=== PATIENT | male | born 1965 | race Caucasian/White ===

== ENCOUNTER → 2016-12-05 | Outpatient (CLI) | payer MEDICAID ==
--- NOTE | 2016-12-05 23:57 | MR ---
EXAMINATION TYPE: MR ankle RT wo con DATE OF EXAM: 12/05/2016 COMPARISON: NONE HISTORY: Right ankle pain Standard multiplanar, multisequence MRI departmental protocol Multiplanar, multisequence images of the right ankle were acquired. FINDINGS: Ankle mortise is anatomic. Joint spaces are fairly normal. The collateral ligaments appear intact. Achilles tendon appears normal. The medial and lateral flexor tendons of the ankle appear int act. Subtalar joint appears normal. Talonavicular joint appears normal. Plantar fascia appears normal . I see no bony destructive process. There is no sign of a fracture. Tarsal bones appear intact. IMPRESSION: Negative exam. I do not see a cause for right ankle pain.
== END | disposition home or self-care (01) ==
LOC: RADMRIMAIN 14:43
PROVIDERS: ATTEND Orthopaedic Surgery
DX: M25.571 Pain in right ankle and joints of right foot (principal)

== ENCOUNTER → 2017-01-09 | Outpatient (CLI) | payer MEDICAID ==
--- NOTE | 2017-01-09 22:00 | MR ---
EXAMINATION TYPE: MR lumbar spine wo con DATE OF EXAM: 01/09/2017 COMPARISON: NONE HISTORY: Low back pain with Right Leg and Foot weakness TECHNIQUE: T1 and T2 axial and sagittal images of the lumbar spine are submitted. FINDINGS: There is no abnormal signal seen within the visualized spinal cord or paraspinal soft tissu es. At L1-2 there is no disc herniation or canal stenosis. There is facet arthropathy. No foraminal encro achment. At L2-3 there is mild hypertrophic change of the facets with no disc herniation or canal stenosis. No foraminal encroachment. At L3-4 there is Diffuse circumferential disc bulging with facet arthropathy. Bulging greater lateral ly to left. Moderate bilateral foraminal encroachment greater on the left. At L4-5 there is hypertrophy of the facets. No disc herniation or canal stenosis. No foraminal encroa chment. At L5-S1 there is mild facet arthropathy. No disc herniation or canal stenosis. No foraminal encroach ment. Vertebral body hemangioma at multiple levels. IMPRESSION: 1. Multilevel facet arthropathy with disc bulging at L3-4 with mild effacement of thecal sac. Bilater al foraminal encroachment greater on the left due to greater left lateral disc bulging.
== END | disposition home or self-care (01) ==
LOC: RADMRIMAIN 21:04
PROVIDERS: ATTEND Physical Medicine & Rehabilitation
DX: M51.16 Intervertebral disc disorders with radiculopathy, lumbar region (principal); M46.86 Other specified inflammatory spondylopathies, lumbar region
CPT/HCPCS: 72148

== ENCOUNTER → 2018-11-18 | Outpatient (CLI) | payer MEDICAID ==
[2018-11-18 17:41] LABS: Folate, Serum 12.4 ng/mL
== END | disposition home or self-care (01) ==
LOC: LABWHC1 11:00
PROVIDERS: ATTEND Psychiatry & Neurology Neurology
DX: E53.8 Deficiency of other specified B group vitamins (principal)
CPT/HCPCS: 36415; 82607; 82746

== ENCOUNTER → 2022-10-15 | Outpatient (CLI) | payer MEDICAID ==
--- NOTE | 2022-10-15 14:16 | XR ---
EXAMINATION TYPE: XR chest 2V DATE OF EXAM: 10/15/2022 COMPARISON: None INDICATION: Chest tightness, short of breath TECHNIQUE: Frontal and lateral views of the chest are obtained. FINDINGS: The heart size is normal. The pulmonary vasculature is normal. The lungs are clear. IMPRESSION: 1. No acute pulmonary process.
[2022-10-15 20:39] LABS: Basophils # (A) 0.03 X 10*3/uL (0.00-0.10); Basophils % (A) 0.6 %; Eosinophils # (A) 0.06 X 10*3/uL (0.04-0.35); Eosinophils % (A) 1.2 %; HCT 46.3 % (39.6-50.0); HGB 15.5 g/dL (13.0-17.0); Immature Grans, Automated 0.4 %; Lymphocytes # (A) 1.79 X 10*3/uL (0.90-5.00); Lymphocytes % (A) 35.1 %; MCH 30.7 pg (27.0-32.0); MCHC 33.5 g/dL (32.0-37.0); MCV 91.7 fL (80.0-97.0); Mean Platelet Volume 9.4 fL (9.5-12.2); Monocytes # (A) 0.46 X 10*3/uL (0.20-1.00); NRBC Per 100 WBC 0 /100 WBCS (0.0-0.0); Neutrophils # (A) 2.74 X 10*3/uL (1.80-7.70); Neutrophils % (A) 53.7 %; Platelet Count 221 X 10*3/uL (140-440); RBC 5.05 X 10*6/uL (4.40-5.60); RDW 13.2 % (11.5-14.5)
[2022-10-15 21:19] LABS: African American GFR (CKD) 97.1 (60.0-200.0); Albumin 4.6 g/dL (3.8-4.9); Albumin/Globulin Ratio 2.09 (1.60-3.17); Anion Gap 8.3 mmol/L (10.00-18.00); BUN/Creat Ratio 12.7 Ratio (12.00-20.00); Blood Urea Nitrogen 12.7 mg/dL (9.0-27.0); Calcium 9.8 mg/dL (8.7-10.3); Carbon Dioxide 26.7 mmol/L (20.0-27.5); Globulin 2.2 g/dL (1.6-3.3); Non-African American GFR(CKD) 83.8 (60.0-200.0); Potassium 4.8 mmol/L (3.5-5.5); Total Bilirubin 0.5 mg/dL (0.30-1.20); Total Protein 6.8 g/dL (6.2-8.2)
== END | disposition home or self-care (01) ==
LOC: LABWHC1 13:48
PROVIDERS: ATTEND Family Medicine
DX: R06.02 Shortness of breath (principal); R07.89 Other chest pain; Z82.49 Family history of ischemic heart disease and other diseases of the circulatory system
CPT/HCPCS: 36415; 71046; 80053; 82550; 84443; 84484; 85025; 93005

== ENCOUNTER → 2023-09-30 | Outpatient (CLI) | payer MEDICAID ==
--- NOTE | 2023-09-30 17:43 | XR ---
EXAMINATION TYPE: XR knee complete bilateral DATE OF EXAM: 09/30/2023 COMPARISON: None HISTORY: Osteoarthritis TECHNIQUE: Bilateral knees 4 views each FINDINGS: No acute fractures or dislocations evident. Joint spaces are preserved. No joint effusion i s evident. There is a large spur from the posterior metaphyseal right tibia. Consider MRI of the right knee for additional evaluation No suspicious joint space abnormality is evident IMPRESSION: 1. One suspected osteochondroma posterior right tibia. MRI can be performed for closer evaluation. 2. No acute osseous abnormalities bilateral knees. 3. No suspicious degenerative changes of the knees
[2023-09-30 18:52] LABS: Basophils # (A) 0.03 X 10*3/uL (0.00-0.10); Basophils % (A) 0.6 %; Eosinophils # (A) 0.06 X 10*3/uL (0.04-0.35); Eosinophils % (A) 1.3 %; HCT 49.1 % (39.6-50.0); HGB 16.2 g/dL (13.0-17.0); MCH 30.5 pg (27.0-32.0); MCV 92.3 FL (80.0-97.0); Mean Platelet Volume 9.4 FL (9.5-12.2); Monocytes # (A) 0.35 X 10*3/uL (0.20-1.00); Monocytes % (A) 7.4 %; NRBC Per 100 WBC 0 X 10*3/uL (0.00-0.01); Neutrophils # (A) 2.65 X 10*3/uL (1.80-7.70); Neutrophils % (A) 56.5 %; Platelet Count 213 X 10*3/uL (140-440); RBC 5.32 X 10*6/uL (4.40-5.60); RDW 13.1 % (11.5-14.5)
[2023-09-30 19:46] LABS: % Iron Saturation 32.56 (15.00-50.00); ALT 34 U/L (10-49); AST 24 U/L (14-35); Albumin 4.7 g/dL (3.8-4.9); Albumin/Globulin Ratio 1.88 Ratio (1.60-3.17); Alkaline Phosphatase 90 U/L (41-126); BUN/Creat Ratio 14.78 Ratio (12.00-20.00); Blood Urea Nitrogen 13.3 mg/dL (9.0-27.0); Calcium 9.9 mg/dL (8.7-10.3); Carbon Dioxide 26.2 mmol/L (21.6-31.8); Chloride 104 mmol/L (96-109); Chol/HDL Ratio 4.37 Ratio; Globulin 2.5 g/dL (1.6-3.3); Glucose 89 mg/dL (70-110); Iron 112 UG/DL (65-175); LDL Cholesterol,Calculated 157.1 mg/dL (0.0-131.0); PSA Annual Screen 0.552 ng/mL (0.000-4.000); Potassium 4.5 mmol/L (3.5-5.5); Sodium 141 mmol/L (135-145); Total Bilirubin 0.6 mg/dL (0.3-1.2); Total Iron Binding Capacity 344 UG/DL (228-460); Total Protein 7.2 g/dL (6.2-8.2)
[2023-10-01 04:25] LABS: EBV - VCA IgM <10.0 U/mL (<36.0)
--- NOTE | 2023-10-01 11:23 | XR ---
EXAMINATION TYPE: XR chest 2V DATE OF EXAM: 10/01/2023 COMPARISON: 10/15/2022 HISTORY: Shortness of breath TECHNIQUE: Frontal and lateral views of the chest are obtained. FINDINGS: Scattered senescent parenchymal changes noted. Hyperinflation compatible with COPD. No evidence for infiltrate. No evidence for atelectasis. Heart size is stable. Mediastinal structures are stable and grossly unremarkable. No evidence for hilar prominence. Degenerative changes dorsal spine. IMPRESSION: 1. No evidence for acute pulmonary disease.
== END | disposition home or self-care (01) ==
LOC: RADXRMAIN 14:07
PROVIDERS: ATTEND Internal Medicine
DX: R07.9 Chest pain, unspecified (principal); D16.21 Benign neoplasm of long bones of right lower limb; M17.10 Unilateral primary osteoarthritis, unspecified knee; Z00.00 Encounter for general adult medical examination without abnormal findings
CPT/HCPCS: 86665; 80061; 80053; 84443; 82533; 82607; 82728; 82746; 83540; 83550; 85025; 84270; 82040; 84403; 82784; 86645; 73562; 71046; G0103

== ENCOUNTER → 2023-10-09 | Outpatient (CLI) | payer MEDICAID ==
--- NOTE | 2023-10-09 16:50 | MR ---
EXAMINATION TYPE: MR knee RT wo con DATE OF EXAM: 10/09/2023 COMPARISON: None HISTORY: Right knee pain for 4 years. TECHNIQUE: Multiplanar, multisequence imaging of the right knee is performed without IV contrast. FINDINGS: There is no bone contusion or fracture. There is no joint effusion. The articular cartilages are normal in signal intensity and thickness and there is no significant ost eoarthritic change of the knee. There is no meniscal tear. The cruciate and collateral ligaments are intact. The patellar and quadriceps tendons are intact. The anterior fat pads are normal. IMPRESSION: No evidence of internal derangement or acute injury.
== END | disposition home or self-care (01) ==
LOC: RADMRIMAIN 15:44
PROVIDERS: ATTEND Internal Medicine
DX: M17.11 Unilateral primary osteoarthritis, right knee (principal)

== ENCOUNTER → 2023-10-14 | Outpatient (CLI) | payer MEDICAID ==
--- NOTE | 2023-10-14 11:54 | CA ---
Stress Echo Report Glenn Potter Age: 58 Gender: M : 1965 Exam Date: 10/14/2023 10:00 Exam Location: [facility] Ht (in): 70 Wt (lb): 190 Ordering Physician: Bubba Starkey DO Referring Physician: Bubba Starkey DO Source Water Protection Specialist: العراقي Technologist Procedure CPT: Indication: R07.9 CHEST PAIN ICD-9 Codes: Rhythm: Patient History: Chest pain and family history of heart disease. Cardiac Medications: Medications in past 24 hours: Contrast: Stress Results Protocol: Brett Total dose(mL): Exercise Duration (min:sec): 11:[address] Depression (mm): Angina Score: Newsome Score: METS: 12.1 Resting HR: 79 Resting BP: 139 / 89 Peak HR: 150 Peak BP: 195 / 89 Max Predicted HR: 163 92 % Max Predicted HR Target HR: 139 Double Product: [id number] Stress Summary: BP Response: Reason for Termination: Reached target heart rate or work-load Cardiac Symptoms: Slight chest pressure. ECG Analysis Resting ECG: Normal sinus rhythm normal axis normal intervals Stress ECG: Patient exercised on Brett protocol for 12 minutes achieving 85% of predicted maximal heart rate without chest pain or diagnostic ST segment depression Arrhythmia: Echo Analysis Resting Echo: Normal left ventricular size wall motion systolic function Peak Echo Analysis: Normal hyperdynamic response of all segments of myocardium MEASUREMENTS (Male/Female) Normal Values CONCLUSIONS Excellent exercise tolerance Negative stress test by EKG criteria Negative stress echo Dr. Vicente Crawley MD (Electronically Signed) Final Date: 14 October 2023 11:53
== END | disposition home or self-care (01) ==
LOC: RADNMMAIN 09:33
PROVIDERS: ATTEND Internal Medicine
DX: R07.9 Chest pain, unspecified (principal); Z82.49 Family history of ischemic heart disease and other diseases of the circulatory system
CPT/HCPCS: 93351

== ENCOUNTER 2024-01-26 07:54 | Emergency (ER) | payer MEDICAID ==
[2024-01-26 07:59] VITALS: RESP 18; TEMP 98
[2024-01-26] MEDS: SODIUM CHLORIDE 0.9% 1,000 ML IV ONE (08:23)
[2024-01-26] MEDS: SODIUM CHLORIDE 0.9% 500 ML 500 ML IV ONE (08:26)
[2024-01-26 08:37] LABS: Basophils % (A) 1 %; Eosinophils # (A) 0.2 k/uL (0-0.7); Eosinophils % (A) 5 %; HCT 48.3 % (39.0-53.0); HGB 15.7 gm/dL (13.0-17.5); Lymphocytes # (A) 1.4 k/uL (1.0-4.8); Lymphocytes % (A) 32 %; MCH 30.1 pg (25.0-35.0); MCHC 32.5 g/dL (31.0-37.0); MCV 92.5 fL (80.0-100.0); Mean Platelet Volume 6.8; Monocytes # (A) 0.3 k/uL (0-1.0); Monocytes % (A) 6 %; Neutrophils # (A) 2.4 k/uL (1.3-7.7); Neutrophils % (A) 55 %; Platelet Count 220 k/uL (150-450); RBC 5.22 m/uL (4.30-5.90); RDW 12.9 % (11.5-15.5); WBC 4.3 k/uL (3.8-10.6)
[2024-01-26] MEDS: KETOROLAC 15 MG/ML 1 ML VIAL IVP STA (08:40)
[2024-01-26] MEDS: ORPHENADRINE 30 MG/ML 2 ML VIAL IVP STA (08:41)
[2024-01-26 08:57] LABS: ALT 30 U/L (4-49); AST 30 U/L (17-59); African American GFR (CKD) >90 (>60 ml/min/1.73 sqM); Albumin 4.3 g/dL (3.5-5.0); Alkaline Phosphatase 81 U/L (38-126); Anion Gap 5 mmol/L; Blood Urea Nitrogen 16 mg/dL (9-20); Calcium 9.3 mg/dL (8.4-10.2); Carbon Dioxide 26 mmol/L (22-30); Chloride 108 mmol/L (98-107); Glucose 98 mg/dL (74-99); Non-African American GFR(CKD) >90 (>60 ml/min/1.73 sqM); Potassium 4.1 mmol/L (3.5-5.1); Sodium 139 mmol/L (137-145); Total Bilirubin 0.8 mg/dL (0.2-1.3); Total Protein 6.8 g/dL (6.3-8.2)
--- NOTE | 2024-01-26 09:09 | XR ---
EXAMINATION TYPE: XR chest 2V DATE OF EXAM: 01/26/2024 COMPARISON: 09/30/2023 HISTORY: Chest pain TECHNIQUE: Frontal and lateral views of the chest are obtained. FINDINGS: There is no focal air space opacity. No evidence for pneumothorax. No pleural effusion. The cardiac silhouette size is within normal limits. The osseous structures are grossly intact. IMPRESSION: 1. No acute cardiopulmonary process.
--- NOTE | 2024-01-26 09:30 | ED ---
General Adult HPI - General Chief complaint: Back Pain/Injury Stated complaint: Muscle spasms in back Time Seen by Provider: 01/26/24 08:02 Source: patient, RN notes reviewed Mode of arrival: ambulatory Limitations: no limitations - History of Present Illness Initial comments: 58-year-old male presents emerged part chief complaint of thoracic back pain, right shoulder discomfort. Patient states that he went to get up and felt everything tight now. He states he has pain with movement no pain at rest denies any chest pain no shortness of breath other than when the pain takes his breath away. Denies any rashes he states he has been exerting himself and feels dehydrated. - Related Data Previous Rx's Medication Instructions Recorded Azithromycin [Zithromax Z-pack (6 250 mg PO DIRECTED #6 tab 02/09/ tabs)] Cyclobenzaprine [Flexeril] 10 mg PO TID PRN #15 tab 01/26/24 Ketorolac [Toradol] 10 mg PO Q8HR #15 tab 01/26/24 Allergies Allergy/AdvReac Type Severity Reaction Status Date / Time No Known Allergies Allergy Verified 01/26/24 07:59 Review of Systems ROS Statement: Those systems with pertinent positive or pertinent negative responses have been documented in the HPI. ROS Other: All systems not noted in ROS Statement are negative. Past Medical History Past Medical History: No Reported History History of Any Multi-Drug Resistant Organisms: None Reported Past Surgical History: Hernia Repair, Orthopedic Surgery Additional Past Surgical History / Comment(s): arthroscopic rt shoulder Past Anesthesia/Blood Transfusion Reactions: No Reported Reaction Past Psychological History: No Psychological Hx Reported Smoking Status: Never smoker Past Alcohol Use History: Occasional Past Drug Use History: None Reported - Past Family History Mother Family Medical History: No Reported History General Exam Limitations: no limitations General appearance: alert, in no apparent distress Head exam: Present: atraumatic, normocephalic, normal inspection Eye exam: Present: normal appearance, PERRL, EOMI. Absent: scleral icterus, conjunctival injection, periorbital swelling ENT exam: Present: normal exam, mucous membranes moist Neck exam: Present: normal inspection. Absent: tenderness, meningismus, lymphadenopathy Respiratory exam: Present: normal lung sounds bilaterally, chest wall tenderness. Absent: respiratory distress, wheezes, rales, rhonchi, stridor Cardiovascular Exam: Present: regular rate, normal rhythm, normal heart sounds. Absent: systolic murmur, diastolic murmur, rubs, gallop, clicks Course Vital Signs 01/26/24 01/26/24 07:55 09:42 Temperature 98 F 98 F Pulse Rate 66 68 Respiratory 18 18 Rate Blood Pressure 108/73 112/74 O2 Sat by Pulse 98 99 Oximetry Medical Decision Making - Medical Decision Making Was pt. sent in by a medical professional or institution (, NICK, [employer]ANE CREW SUPERVISOR, urgent care, hospital, or fdc...) When possible be specific @ -No Did you speak to anyone other than the patient for history (EMS, parent, family, police, friend...)? What history was obtained from this source @ -No Did you review nursing and triage notes (agree or disagree)? Why? @ -I reviewed and agree with nursing and triage notes Were old charts reviewed (outside hosp., previous admission, EMS record, old EKG, old radiological studies, urgent care reports/EKG's, fdc records)? Report findings @ -No old charts were reviewed Differential Diagnosis (chest pain, altered mental status, abdominal pain women, abdominal pain men, vaginal bleeding, weakness, fever, dyspnea, syncope, headache, dizziness, GI bleed, back pain, seizure, CVA, palpatations, mental health, musculoskeletal)? @ -Differential Back Pain: Strain, zoster, cauda equina syndrome, epidural abscess, vertebral osteomyelitis, discitis, fracture, subluxation, disc herniation, DJD, spinal stenosis, dissection, AAA, pancreatitis, peptic ulcer disease, pyelonephritis, kidney stone, this is not meant to be an all-inclusive list. EKG interpreted by me (3pts min.). @ -[None on X-rays interpreted by me (1pt min.). @ -Chest x-ray shows no acute cardiopulmonary process CT interpreted by me (1pt min.). @ -None done U/S interpreted by me (1pt. min.). @ -None done What testing was considered but not performed or refused? (CT, X-rays, U/S, labs)? Why? @ -None What meds were considered but not given or refused? Why? @ -None Did you discuss the management of the patient with other professionals (professionals i.e. , NICK, CRANE CREW SUPERVISOR, lab, RT, psych nurse, high school social science teacher, car rental sales assistant, teacher, corporate trust officer, rehabilitation caseworker)? Give summary @ -No Was smoking cessation discussed for >3mins.? @ -No Was critical care preformed (if so, how long)? @ -No Were there social determinants of health that impacted care today? How? (Homelessness, low income, unemployed, alcoholism, drug addiction, transportation, low edu. Level, literacy, decrease access to med. care, long-term, rehab)? @ -No Was there de-escalation of care discussed even if they declined (Discuss DNR or withdrawal of care, Hospice)? DNR status @ -No What co-morbidities impacted this encounter? (DM, HTN, Smoking, COPD, CAD, Cancer, CVA, ARF, Chemo, Hep., AIDS, mental health diagnosis, sleep apnea, morbid obesity)? @ -None Was patient admitted / discharged? Hospital course, mention meds given and route, prescriptions, significant lab abnormalities, going to OR and other pertinent info. @ -Discharge patient feels greatly improved after muscle relaxers. Laboratory studies unremarkable patient's pain reproducible only with movement. Undiagnosed new problem with uncertain prognosis? @ -No Drug Therapy requiring intensive monitoring for toxicity (Heparin, Nitro, Insulin, Cardizem)? @ -No Were any procedures done? @ -No Diagnosis/symptom? @ -Thoracic back pain Acute, or Chronic, or Acute on Chronic? @ -Acute Uncomplicated (without systemic symptoms) or Complicated (systemic symptoms)? @ -Complicated Side effects of treatment? @ -No Exacerbation, Progression, or Severe Exacerbation? @ -No Poses a threat to life or bodily function? How? (Chest pain, [place], [place], pneumonia, PE, COPD, DKA, ARF, appy, cholecystitis, CVA, Diverticulitis, Homicidal, Suicidal, threat to staff... and all critical care pts) @ -No - Lab Data Result diagrams: 01/26/24 08:19 01/26/24 08:19 Lab Results 01/26/24 01/26/24 Range/Units 08:19 08:19 WBC 4.3 (3.8-10.6) k/uL RBC 5.22 (4.30-5.90) m/uL Hgb 15.7 (13.0-17.5) gm/dL Hct 48.3 (39.0-53.0) % MCV 92.5 (80.0-100.0) fL MCH 30.1 (25.0-35.0) pg MCHC 32.5 (31.0-37.0) g/dL RDW 12.9 (11.5-15.5) % Plt Count 220 (150-450) k/uL MPV 6.8 Neutrophils % 55 % Lymphocytes % 32 % Monocytes % 6 % Eosinophils % 5 % Basophils % 1 % Neutrophils # 2.4 (1.3-7.7) k/uL Lymphocytes # 1.4 (1.0-4.8) k/uL Monocytes # 0.3 (0-1.0) k/uL Eosinophils # 0.2 (0-0.7) k/uL Basophils # 0.0 (0-0.2) k/uL Sodium 139 (137-145) mmol/L Potassium 4.1 (3.5-5.1) mmol/L Chloride 108 H (98-107) mmol/L Carbon Dioxide 26 (22-30) mmol/L Anion Gap 5 mmol/L BUN 16 (9-20) mg/dL Creatinine 0.79 (0.66-1.25) mg/dL Est GFR (CKD-EPI)AfAm >90 (>60 ml/min/1.73 sqM) Est GFR (CKD-EPI)NonAf >90 (>60 ml/min/1.73 sqM) Glucose 98 (74-99) mg/dL Calcium 9.3 (8.4-10.2) mg/dL Total Bilirubin 0.8 (0.2-1.3) mg/dL AST 30 (17-59) U/L ALT 30 (4-49) U/L Alkaline Phosphatase 81 (38-126) U/L Total Protein 6.8 (6.3-8.2) g/dL Albumin 4.3 (3.5-5.0) g/dL Disposition Clinical Impression: Thoracic back pain, Muscle spasm of back Disposition: HOME SELF-CARE Condition: Stable Instructions (If sedation given, give patient instructions): Thoracic Pain (ED), Muscle Spasm (ED) Additional Instructions: Please return to the Emergency Department if symptoms worsen or any other concerns. Prescriptions: Cyclobenzaprine [Flexeril] 10 mg PO TID PRN #15 tab PRN Reason: Muscle Spasm Ketorolac [Toradol] 10 mg PO Q8HR #15 tab Is patient prescribed a controlled substance at d/c from ED?: No Referrals: Bubba Starkey DO [Primary Care Provider] - 1-2 days Time of Disposition: 09:29
[2024-01-26 10:04] VITALS: BP 112/74; PULSE 68
== END 2024-01-26 09:42 | disposition home or self-care (01) ==
LOC: EC 07:54
DX: M62.830 Muscle spasm of back (principal); M54.6 Pain in thoracic spine
CPT/HCPCS: 99283; 96374; 96375; 96361; 36415; 80053; 85025; 71046; J2360; J1885

== ENCOUNTER 2024-04-01 08:32 | Day surgery (SDC) | payer MEDICAID ==
[2024-03-28 10:37] VITALS: BMI 28.7
[2024-04-01] MEDS ORDERED: HYDROmorphone 0.5 MG/0.5 ML SYRINGE IVP PRN (09:22)
[2024-04-01] MEDS ORDERED: MIDAZOLAM 2 MG/2 ML VIAL IV PRN (09:22)
[2024-04-01] MEDS ORDERED: HYDROmorphone (PF) 1 MG/ML ONE (09:24)
[2024-04-01] MEDS ORDERED: SUCCINYLCHOLINE CHLORIDE 200 MG/10 ML VIAL IV ONE (09:24)
[2024-04-01] MEDS ORDERED: ROCURONIUM 10 MG/ML (5 ML VIAL) IV ONE (09:24)
[2024-04-01] MEDS ORDERED: MIDAZOLAM 2 MG/2 ML VIAL ONE (09:24)
[2024-04-01] MEDS ORDERED: GLYCOPYRROLATE 0.2 MG/ML 2 ML VIAL ONE (09:24)
[2024-04-01] MEDS ORDERED: NEOSTIGMINE 1 MG/ML 10 ML VIAL ONE (09:24)
[2024-04-01] MEDS ORDERED: fentaNYL (PF) 50 MCG/ML 2 ML AMP ONE (09:24)
[2024-04-01] MEDS ORDERED: ceFAZolin 1 GM/50 ML BAG (PMX) ONE (09:24)
[2024-04-01] MEDS ORDERED: PROPOFOL 10 MG/ML 20 ML VIAL IV ONE (09:24)
[2024-04-01] MEDS ORDERED: LIDOCAINE 1% INJ 10MG/ML (20 ML MDV) ONE (09:24)
[2024-04-01] MEDS: IV FLUID CONTINUATION 1,000 ML IV ONE (09:27)
[2024-04-01] MEDS: SCOPOLAMINE 1 MG/72 HR PATCH TRANSDERM ONE (10:08)
[2024-04-01] MEDS: ONDANSETRON 4 MG/2 ML VIAL IVP ONE (10:08)
[2024-04-01] MEDS: DEXAMETHASONE SOD PHOSPHATE 4 MG/ML 1 ML VIAL IV ONE (10:08)
[2024-04-01] MEDS: LACTATED RINGERS 1,000 ML IV SCH (10:09)
[2024-04-01] MEDS: LACTATED RINGERS 1,000 ML IV ONE (11:39)
--- NOTE | 2024-04-01 12:08 | P.GSHP ---
History of Present Illness H&P Date: 04/01/24 Chief Complaint: Multiple lipomas Patient known from previous office visit. Here today for excision of multiple lipomas. No real change at all since his office visit. Past Medical History Past Medical History: Skin Disorder Additional Past Medical History / Comment(s): Lipomas History of Any Multi-Drug Resistant Organisms: None Reported Past Surgical History: Hernia Repair, Orthopedic Surgery Additional Past Surgical History / Comment(s): arthroscopic rt shoulder, lipomas removal. Past Anesthesia/Blood Transfusion Reactions: No Reported Reaction Smoking Status: Never smoker - Past Family History Mother Family Medical History: No Reported History Medications and Allergies Home Medications Medication Instructions Recorded Confirmed Type No Known Home Medications 03/28/24 04/01/24 History Allergies Allergy/AdvReac Type Severity Reaction Status Date / Time No Known Allergies Allergy Verified 04/01/24 09:23 Surgical - Exam Vital Signs Temp Pulse Resp BP Pulse Ox 97.3 F L 67 16 117/82 98 04/01/24 09:28 04/01/24 09:28 04/01/24 09:28 04/01/24 09:28 04/01/24 09:28 Physical exam: General: Well-developed, well-nourished HEENT: Normocephalic, sclerae nonicteric Abdomen: Nontender, nondistended Extremities: No edema, multiple lipomas. Please refer to the body outline drawing where we marked all of the locations and sizes. Total of 13 lipomas planned for excision Neuro: Alert and oriented Assessment and Plan (1) Lipoma Narrative/Plan: Will proceed with excision multiple lipomas at this time. Current Visit: Yes Status: Acute Code(s): D17.9 - BENIGN LIPOMATOUS NEOPLASM, UNSPECIFIED SNOMED Code(s): 58875923
--- NOTE | 2024-04-01 12:11 | P.OP ---
Date of Procedure: 04/01/24 Procedure(s) Performed: PREOPERATIVE DIAGNOSIS: Multiple lipomas POSTOPERATIVE DIAGNOSIS: Same PROCEDURE: Excision multiple lipomas, intermediate closure SURGEON: Thony EBL: 20 cc ANESTHESIA: General COMPLICATIONS: None OPERATIVE PROCEDURE: Patient placed in the prone position first after general anesthesia achieved. Please refer to the body outline that was written and scanned into the chart. On the back we removed a total of 5 lipomas. The 2 on the right-hand side were 4 cm each, on the left-hand side there were 3 of them 2 of them measuring 4 cm 1 measuring 3 cm. A right posterior thigh lipoma was also noted measuring 3 cm. These were all excised using a combination of blunt dissection and cautery. Subcutaneous tissues were closed using interrupted 3-0 Vicryl sutures. Skin was closed using a running 4-0 Monocryl stitch. Skin glue and sterile dressings applied. Next the patient was placed in the supine position. A total of 7 lipomas removed from here. 2 in the right forearm measuring 1.5 cm each, 1 on the right lower abdomen measuring 2 cm, 1 in the right lower abdomen measuring 3.5 cm, the largest in the left upper abdomen measuring 4.5 cm. There were 2 in the left thigh measuring 2.5 and 1 cm. These were removed in the similar fashion and closed in a similar fashion. Length of intermediate closure 25 cm. DISPOSITION: Stable to recovery room
[2024-04-01 12:19] VITALS: TEMP 97
[2024-04-01 13:35] VITALS: BP 124/87; PULSE 56; RESP 20
[2024-04-01] MEDS ORDERED: NALOXONE 0.4 MG/ML 1 ML VIAL IV PRN (13:38)
== END 2024-04-01 14:01 | disposition home or self-care (01) ==
LOC: OR 08:32
PROVIDERS: ATTEND Surgery
DX: D17.1 Benign lipomatous neoplasm of skin and subcutaneous tissue of trunk
CPT/HCPCS: 88304

== ENCOUNTER → 2024-10-27 | Outpatient (CLI) | payer MEDICAID ==
[2024-10-27 20:14] LABS: ALT 40 U/L (10-49); AST 27 U/L (14-35); Albumin 4.3 g/dL (3.8-4.9); Albumin/Globulin Ratio 1.87 Ratio (1.60-3.17); Alkaline Phosphatase 88 U/L (41-126); Calcium 9.2 mg/dL (8.7-10.3); Carbon Dioxide 23.5 mmol/L (21.6-31.8); Chloride 105 mmol/L (96-109); Chol/HDL Ratio 4.59 Ratio; Globulin 2.3 g/dL (1.6-3.3); Glucose 108 mg/dL (70-110); LDL Cholesterol,Calculated 137.3 mg/dL (0.0-131.0); Potassium 4.5 mmol/L (3.5-5.5); Prostate Specific Antigen 0.48 ng/mL (0.000-3.500); Sodium 140 mmol/L (135-145); Total Bilirubin 0.4 mg/dL (0.3-1.2); Total Protein 6.6 g/dL (6.2-8.2)
[2024-10-27 20:46] LABS: Basophils # (A) 0.04 X 10*3/uL (0.00-0.10); Basophils % (A) 0.8 %; Eosinophils # (A) 0.06 X 10*3/uL (0.04-0.35); Eosinophils % (A) 1.3 %; HCT 48.5 % (39.6-50.0); HGB 15.7 g/dL (13.0-17.0); Lymphocytes # (A) 1.27 X 10*3/uL (0.90-5.00); Lymphocytes % (A) 26.5 %; MCH 30.6 pg (27.0-32.0); MCHC 32.4 g/dL (32.0-37.0); MCV 94.5 FL (80.0-97.0); Mean Platelet Volume 9.6 FL (9.5-12.2); Monocytes # (A) 0.38 X 10*3/uL (0.20-1.00); Monocytes % (A) 7.9 %; NRBC Per 100 WBC 0 X 10*3/uL (0.00-0.01); Neutrophils # (A) 3.03 X 10*3/uL (1.80-7.70); Neutrophils % (A) 63.3 %; Platelet Count 205 X 10*3/uL (140-440); RBC 5.13 X 10*6/uL (4.40-5.60); RDW 13.2 % (11.5-14.5); WBC 4.79 X 10*3/uL (4.50-10.00)
--- NOTE | 2024-10-27 21:23 | XR ---
EXAMINATION TYPE: XR knee 4V RT DATE OF EXAM: 10/27/2024 12:55 PM COMPARISON: 09/30/2023 CLINICAL INDICATION: Male, 59 years old with history of M25.561; PHH, pain TECHNIQUE: XR knee 4V RT FINDINGS: Redemonstrated pedunculated osteochondroma from the posteromedial aspect of the proximal tibial metad iaphysis. There is a 2.7 cm wide base with the osteochondroma projecting 2.3 cm inferiorly into the p osterior soft tissues. Overall appearance is unchanged from prior. Extensor mechanism is intact. No s ignificant joint effusion. Minimal marginal spurring medial and patellofemoral compartments. Patella remains appropriately situated along the trochlear groove. IMPRESSION: 1. Redemonstrated 2.3 cm long pedunculated osteochondroma projecting posteriorly and inferiorly from the proximal tibial metadiaphysis. 2. Very minimal degenerative spurring medial and patellofemoral compartments. 3. No acute osseous abnormality seen. [facility], , 10/27/2024 9:21 PM
== END | disposition home or self-care (01) ==
LOC: RADXRMAIN 12:27
PROVIDERS: ATTEND Internal Medicine
DX: M17.11 Unilateral primary osteoarthritis, right knee (principal); D16.21 Benign neoplasm of long bones of right lower limb
CPT/HCPCS: 80053; 80061; 84153; 84443; 85025